=== PATIENT | female | born 1980 | race Caucasian/White ===

== ENCOUNTER 2018-06-06 23:40 | Emergency (ER) | payer OTHER ==
[2018-06-06 23:58] LABS: BILIRUBIN,URINE NEGATIVE (NEGATIVE); GLUCOSE, URINE (UA) NEGATIVE (NEGATIVE); KETONES,URINE (UA) NEGATIVE (NEGATIVE); LEUKOCYTE ESTERASE, URINE NEGATIVE (NEGATIVE); NITRITE,URINE NEGATIVE (NEGATIVE); OCCULT BLOOD,URINE NEGATIVE (NEGATIVE); PROTEIN,URINE NEGATIVE (NEGATIVE); UROBILINOGEN,URINE 0.2 (NORMAL) E.U./dL (NORMAL)
[2018-06-07 00:01] LABS: CLARITY,URINE CLEAR (CLEAR)
[2018-06-07 00:12] LABS: HCG UR QUAL NEGATIVE
[2018-06-07] MEDS ORDERED: ONDANSETRON 4 MG/2 ML VIAL IVP STA (00:34)
[2018-06-07] MEDS ORDERED: SODIUM CHLORIDE 0.9% 1,000 ML IV ONE (00:34)
[2018-06-07] MEDS ORDERED: KETOROLAC 60 MG/2 ML VIAL IVP STA (00:34)
[2018-06-07] MEDS ORDERED: DEXAMETHASONE 10 MG/ML VIAL IVP STA (00:34)
--- NOTE | 2018-06-07 00:36 | ED Physician Documentation ---
PD HPI BACK PAIN - Stated complaint Stated Complaint: LOW BACK PAIN,VOMITING - Chief complaint Chief Complaint: Abd Pain - History obtained from History obtained from: Patient - History of Present Illness Timing - onset: How many days ago (2) Timing - duration: Days (2) Timing - details: Gradual onset, Still present Location: Mid, Lower Quality: Pain, Sharp Associated symptoms: Fever Improves with: Rest, Position, Meds Worsened by: Movement Contributing factors: Other (no known trauma or excessive use) Similar symptoms before: Diagnosis (pyelo) Recently seen: Not recently seen - Additional information Additional information: Previously well 37-year-old female with a prior history of pyelonephritis has developed acute back pain which she feels is very similar to what she has had with her pyelonephritis. She is developed vomiting she is vomited more than 15 times today she vomited twice yesterday. She has been taking some Aleve today as well as some acetaminophen. She feels that she had a fever earlier today measured at 101 and she has had some chills. 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 - Allergies Allergies/Adverse Reactions: Allergies Allergy/AdvReac Type Severity Reaction Status Date / Time No Known Drug Allergies Allergy Verified 06/06/18 23:50 - Social History Does the pt smoke?: Yes Smoking Status: Current every day smoker Does the pt drink ETOH?: Yes Does the pt have substance abuse?: No - Immunizations Immunizations are current?: Yes - POLST Patient has POLST: No PD ED PE NORMAL - Vitals Vital signs reviewed: Yes - General General: Alert and oriented X 3, No acute distress, Well developed/nourished - HEENT HEENT: Atraumatic, PERRL, EOMI - Neck Neck: Supple, no meningeal sign, No bony TTP - Cardiac Cardiac: RRR, No murmur - Respiratory Respiratory: No respiratory distress, Clear bilaterally - Abdomen Abdomen: Soft, Non tender - Back Back: No spinal TTP, Other (There is tendernes to the paraspineous muscles bilaterally and to both CVA's) - Derm Derm: Normal color, Warm and dry, No rash - Extremities Extremities: No deformity, No edema - Neuro Neuro: Alert and oriented X 3, laundry washer 2-12 intact, No motor deficit, No sensory deficit, Normal speech Eye Opening: Spontaneous Motor: Obeys Commands Verbal: Oriented GCS Score: 15 - Psych Psych: Normal mood, Normal affect Results - Vitals Vitals: Vital Signs - 24 hr 06/06/18 23:48 Temperature 36.8 C Heart Rate 99 Respiratory 16 Rate Blood Pressure 118/89 H O2 Saturation 99 Oxygen O2 Source Room air - Labs Labs: Laboratory Tests 06/06/18 06/07/18 23:54 00:06 Urine Color YELLOW Urine Clarity CLEAR Urine pH 6.0 Ur Specific [place] 1.015 1.015 Urine Protein NEGATIVE Urine Glucose (UA) NEGATIVE Urine Ketones NEGATIVE Urine Occult Blood NEGATIVE Urine Nitrite NEGATIVE Urine Bilirubin NEGATIVE Urine Urobilinogen 0.2 (NORMAL) Ur Leukocyte Esterase NEGATIVE Ur Microscopic Review NOT INDICATED Urine Culture Comments NOT INDICATED Urine HCG, Qual NEGATIVE Procedures - Bedside sono Bedside sono by EMP: With use of bedside ultrasound both kidneys are imaged there is no evidence of hydronephrosis they are sonographically tender but they are not as tender as the paraspinous muscles tested at the same time. PD MEDICAL DECISION MAKING - ED course Complexity details: reviewed results, re-evaluated patient, considered differential, d/w patient ED course: 37-year-old female with flank pain and vomiting has a negative urinalysis and normal blood counts and chemistries and appears to have tenderness to the paraspinous muscles greater than tenderness to the kidneys on sonographic probing. I suspect she has muscle skeletal pain and she behaves this way. She is treated in the emergency department with a liter of saline 30 mg of Toradol and 10 mg of dexamethasone. She does get some transient rectal burning associated with this and has improvement in her symptoms. We were unable to elicit the loading incident for back spasm. - Sepsis Event Vital Signs: Vital Signs - 24 hr 06/06/18 23:48 Temperature 36.8 C Heart Rate 99 Respiratory 16 Rate Blood Pressure 118/89 H O2 Saturation 99 Oxygen O2 Source Room air Departure - Departure Disposition: 01 Home, Self Care Clinical Impression: Spasm of back muscles Instructions: ED Spasm Back No Trauma Follow-Up: Fabricio Boston MD [Primary Care Provider] - Discharge Date/Time: 06/07/18 01:55
[2018-06-07 00:46] LABS: BASOPHILS % (AUTO) 0.2 %; EOSINOPHILS # (AUTO) 0.1 10^3/uL (0.0-0.7); EOSINOPHILS % (AUTO) 1.4 %; HGB - HEMOGLOBIN 14.4 g/dL (12.0-16.0); LYMPHOCYTES # (AUTO) 1.6 10^3/uL (1.5-3.5); LYMPHOCYTES % (AUTO) 17.5 %; MEAN CORPUSCULAR HEMOGLOBIN 31.1 pg (27.0-31.0); MEAN CORPUSCULAR HGB CONC 34.3 g/dL (32.0-36.0); MEAN CORPUSCULAR VOLUME 90.8 fL (81.0-99.0); MEAN PLATELET VOLUME 7.5 fL (7.9-10.8); MONOCYTES # (AUTO) 0.7 10^3/uL (0.0-1.0); MONOCYTES % (AUTO) 8.1 %; NEUTROPHILS # (AUTO) 6.5 10^3/uL (1.5-6.6); NEUTROPHILS % (AUTO) 72.8 %; PLT - PLATELET COUNT 233 10^3/uL (130-450); RED BLOOD COUNT 4.61 10^6/uL (4.20-5.40); RED CELL DISTRIBUTION WIDTH 12.8 % (12.0-15.0); WHITE BLOOD COUNT 8.9 x10^3/uL (4.8-10.8)
[2018-06-07 00:56] LABS: ALBUMIN/GLOBULIN RATIO 1.2 (1.0-2.2); BILIRUBIN,TOTAL 0.6 mg/dL (0.2-1.0); CALCIUM 8.8 mg/dL (8.5-10.3); CREATININE 0.8 mg/dL (0.4-1.0); TOTAL PROTEIN 7.4 g/dL (6.7-8.2)
[2018-06-07 01:02] LABS: TROPONIN I < 0.04 ng/mL (<0.49)
[2018-06-07 01:04] LABS: CREATINE KINASE MB 0.7 ng/mL (0.6-6.3)
[2018-06-07] MEDS ORDERED: ONDANSETRON ODT 4 MG Prepack 2 TL PRN (01:29)
[2018-06-07 02:00] VITALS: BP 110/69
== END 2018-06-07 01:55 | disposition home or self-care (01) ==
LOC: ED 23:40
DX: M62.830 Muscle spasm of back (principal); F17.200 Nicotine dependence, unspecified, uncomplicated
CPT/HCPCS: 80053; 81001; 81003; 81025; 82550; 82553; 83690; 84484; 85025; 87086; 96361; 96374; 96375; 99283

== ENCOUNTER 2018-10-12 23:29 | Emergency (ER) | payer OTHER ==
--- NOTE | 2018-10-12 23:37 | ED Physician Documentation ---
PD HPI ABD PAIN - Stated complaint Stated Complaint: R SIDE ABD PAIN/VOMITING - History obtained from History obtained from: Patient - History of Present Illness Timing - onset: How many days ago (3) Timing - duration: Days (3) Timing - details: Gradual onset, Still present (Initial onset of intermittent crampy right lower quadrant abdominal pain which became more steady in the last day. She states she had a temperature yesterday of 101. She did not have any fever or today. She denied any vomiting but has had nausea. She states her bowel movement was normal today. She did not have any dysuria.) Quality: Aching, Dull, Pain Location: RLQ Radiation: No: Right flank Improved by: Laying still. No: Eating, BM Worsened by: Moving, Palpation. No: Eating, Breathing Associated symptoms: Fever (yesterday), Nausea. No: Vomiting, Diarrhea, Constipation, Dysuria, Loss of appetite, Vaginal bleeding, Vaginal dc Similar symptoms before: Has not had sx before Recently seen: Not recently seen Review of Systems Constitutional: reports: Fever. denies: Myalgias Nose: denies: Rhinorrhea / runny nose, Congestion Throat: denies: Sore throat Cardiac: denies: Chest pain / pressure, Palpitations Respiratory: denies: Dyspnea, Cough GI: reports: Abdominal Pain. 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: Tubal ligation - Present Medications Home Medications: Ambulatory Orders Medication Instructions Recorded Confirmed Naproxen 375 mg PO BID #20 tablet 10/13/18 Ondansetron Odt [Zofran] 4 mg TL Q6H PRN #10 tablet 10/13/18 Oxycodone HCl/Acetaminophen 1 each PO Q6H PRN #14 tablet 10/13/18 [Percocet 5-325 mg Tablet] - Allergies Allergies/Adverse Reactions: Allergies Allergy/AdvReac Type Severity Reaction Status Date / Time No Known Drug Allergies Allergy Verified 06/06/18 23:50 - Social History Does the pt smoke?: Yes Smoking Status: Current every day smoker Does the pt drink ETOH?: Yes Does the pt have substance abuse?: No - Immunizations Immunizations are current?: Yes - POLST Patient has POLST: No PD ED PE NORMAL - Vitals Vital signs reviewed: Yes - General General: Alert and oriented X 3, Well developed/nourished, Other (appears uncomfortable and holding lower right abdomen) - HEENT HEENT: Pharynx benign - Neck Neck: Supple, no meningeal sign, No adenopathy - Cardiac Cardiac: RRR, No murmur - Respiratory Respiratory: Clear bilaterally - Abdomen Abdomen: Normal bowel sounds, Soft, Non distended, No organomegaly, Other (Tender in the right lower quadrant at McBurney's point with local guarding and percussion tenderness. There is no rebound tenderness. There is mild referred tenderness from the umbilical area and the rest of the abdomen is nontender.) - Female Female : Deferred - Rectal Rectal: Deferred - Back Back: No CVA TTP - Derm Derm: Normal color, Warm and dry, No rash - Extremities Extremities: No deformity, No tenderness to palpate, Normal ROM s pain, No edema, No calf tenderness / cord - Neuro Neuro: Alert and oriented X 3, No motor deficit, Normal speech Results - Vitals Vitals: Vital Signs - 24 hr 10/12/18 10/13/18 10/13/18 23:33 00:21 02:02 Temperature 36.3 C L Heart Rate 130 H 105 H 97 Respiratory 18 16 Rate Blood Pressure 123/62 122/74 O2 Saturation 98 98 98 Oxygen O2 Source Room air - Labs Labs: Laboratory Tests 10/12/18 10/12/18 10/12/18 23:39 23:55 23:55 WBC 7.5 RBC 4.88 Hgb 15.2 Hct 44.3 MCV 90.7 MCH 31.1 H MCHC 34.3 RDW 12.4 Plt Count 245 MPV 8.1 Neut # (Auto) 4.8 Lymph # (Auto) 1.9 [place] # (Auto) 0.5 Eos # (Auto) 0.3 Baso # (Auto) 0.0 Absolute Nucleated RBC 0.00 Nucleated RBC % 0.0 Sodium 138 Potassium 3.5 Chloride 99 L Carbon Dioxide 27 Anion Gap 12.0 BUN 17 Creatinine 0.7 Estimated GFR (MDRD) 94 Glucose 108 H Calcium 9.3 Total Bilirubin 0.5 AST 17 ALT 18 Alkaline Phosphatase 79 Total Protein 7.5 Albumin 4.1 Globulin 3.4 Albumin/Globulin Ratio 1.2 Lipase 32 Urine Color YELLOW Urine Clarity CLEAR Urine pH 6.0 Ur Specific [place] 1.020 Urine Protein NEGATIVE Urine Glucose (UA) NEGATIVE Urine Ketones NEGATIVE Urine Occult Blood NEGATIVE Urine Nitrite NEGATIVE Urine Bilirubin NEGATIVE Urine Urobilinogen 0.2 (NORMAL) Ur Leukocyte Esterase NEGATIVE Ur Microscopic Review NOT INDICATED Urine Culture Comments NOT INDICATED Urine HCG, Qual NEGATIVE - Rads (name of study) abd/pelvic CT Radiology: Prelim report reviewed (The appendix appears normal. There is no free fluid. There is localized inflammation and swelling near the right lower quadrant abdominal wall diagnosed as epiploic appendageitis.), EMP read contemporaneously, See rad report PD MEDICAL DECISION MAKING - ED course Complexity details: reviewed results (Surprisingly the appendix appears normal and there was a diagnosis of epiploic appendagitis. I had initially reviewed the CT myself and thought it was appendicitis and started antibiotics. The radiology reading then came across. She is given pain medicine and anti- inflammatories.), considered differential (Seems likely consistent with appendicitis or possible UTI. Consider ovarian abscess. Will check urine test to make sure no issues for ectopic.), d/w patient Departure - Departure Disposition: 01 Home, Self Care Clinical Impression: Epiploic appendagitis Abdominal pain Qualifiers: Abdominal location: right lower quadrant Qualified Code(s): R10.31 - Right lower quadrant pain Condition: Stable Record reviewed to determine appropriate education?: Yes Follow-Up: Fabricio Boston MD [Primary Care Provider] - Prescriptions: Naproxen 375 mg PO BID #20 tablet Ondansetron Odt [Zofran] 4 mg TL Q6H PRN #10 tablet PRN Reason: Nausea / Vomiting Oxycodone HCl/Acetaminophen [Percocet 5-325 mg Tablet] 1 each PO Q6H PRN #14 tablet PRN Reason: pain Comments: Stay well-hydrated. Anti-inflammatories such as naproxen or ibuprofen twice daily for the next week or so. Ondansetron if needed for nausea. Add Tylenol or oxycodone as needed for pains. The pain will likely continue for a few more days and then slowly improving and may take a week or so to fully resolved. Recheck with your primary care however if not improved well within the 2-3 days. Return if worsening pain, persistent fevers, persistent vomiting, other concerns. Forms: Activity restrictions Discharge Date/Time: 10/13/18 02:03
[2018-10-12] MEDS ORDERED: ONDANSETRON 4 MG/2 ML VIAL IVP STA (23:52)
[2018-10-12] MEDS ORDERED: ACETAMINOPHEN 1,000 MG/100 ML 100 ML IV STA (23:52)
[2018-10-12] MEDS ORDERED: SODIUM CHLORIDE 0.9% 1,000 ML IV ONE (23:52)
[2018-10-12 23:55] LABS: BILIRUBIN,URINE NEGATIVE (NEGATIVE); GLUCOSE, URINE (UA) NEGATIVE (NEGATIVE); KETONES,URINE (UA) NEGATIVE (NEGATIVE); LEUKOCYTE ESTERASE, URINE NEGATIVE (NEGATIVE); NITRITE,URINE NEGATIVE (NEGATIVE); OCCULT BLOOD,URINE NEGATIVE (NEGATIVE); PROTEIN,URINE NEGATIVE (NEGATIVE); UROBILINOGEN,URINE 0.2 (NORMAL) E.U./dL (NORMAL)
[2018-10-13 00:07] LABS: CLARITY,URINE CLEAR (CLEAR); HCG UR QUAL NEGATIVE
[2018-10-13 00:07] LABS: BASOPHILS % (AUTO) 0.5 %; EOSINOPHILS # (AUTO) 0.3 10^3/uL (0.0-0.7); EOSINOPHILS % (AUTO) 3.8 %; HGB - HEMOGLOBIN 15.2 g/dL (12.0-16.0); LYMPHOCYTES # (AUTO) 1.9 10^3/uL (1.5-3.5); LYMPHOCYTES % (AUTO) 25.5 %; MEAN CORPUSCULAR HEMOGLOBIN 31.1 pg (27.0-31.0); MEAN CORPUSCULAR HGB CONC 34.3 g/dL (32.0-36.0); MEAN CORPUSCULAR VOLUME 90.7 fL (81.0-99.0); MEAN PLATELET VOLUME 8.1 fL (7.9-10.8); MONOCYTES # (AUTO) 0.5 10^3/uL (0.0-1.0); MONOCYTES % (AUTO) 6.9 %; NEUTROPHILS # (AUTO) 4.8 10^3/uL (1.5-6.6); NEUTROPHILS % (AUTO) 63.3 %; PLT - PLATELET COUNT 245 10^3/uL (130-450); RED BLOOD COUNT 4.88 10^6/uL (4.20-5.40); RED CELL DISTRIBUTION WIDTH 12.4 % (12.0-15.0); WHITE BLOOD COUNT 7.5 x10^3/uL (4.8-10.8)
[2018-10-13 00:16] LABS: ALBUMIN 4.1 g/dL (3.2-5.5); ALBUMIN/GLOBULIN RATIO 1.2 (1.0-2.2); BILIRUBIN,TOTAL 0.5 mg/dL (0.2-1.0); CALCIUM 9.3 mg/dL (8.5-10.3); CREATININE 0.7 mg/dL (0.4-1.0); TOTAL PROTEIN 7.5 g/dL (6.7-8.2)
[2018-10-13] MEDS ORDERED: IOVERSOL 320 100 ML VIAL IVP ONE ×2 (00:18→00:42)
[2018-10-13] MEDS ORDERED: AMPICILLIN/SULBACTAM 1.5 GM in SODIUM CHLORIDE 0.9% MINIBAG 100 ML IV STA (00:41)
--- NOTE | 2018-10-13 01:03 | CT Report ---
Reason: RLQ pain and reported fever Procedure Date: 10/13/2018 Accession Number: [id number] / [id number] Procedure: CT - Abdomen/Pelvis W/ CPT Code: FULL RESULT: EXAM: CT ABDOMEN AND PELVIS EXAM DATE: 10/13/2018 12:45 AM. CLINICAL HISTORY: RLQ pain and reported fever. COMPARISONS: None. TECHNIQUE: Routine helical CT imaging was performed through the abdomen and pelvis. IV contrast: 80ML OPTIRAY 320. Enteric contrast: No. Reconstructions: Coronal and sagittal. In accordance with CT protocol optimization, one or more of the following dose reduction techniques were utilized for this exam: automated exposure control, adjustment of mA and/or KV based on patient size, or use of iterative reconstructive technique. FINDINGS: Lung Bases: Unremarkable. Liver: Normal. No masses. Gallbladder/Bile Ducts: Unremarkable. Spleen: Normal. Pancreas: Normal. Adrenal Glands: Normal. Kidneys: Normal. No masses or hydronephrosis. Peritoneal Cavity/Bowel: Normal. No free fluid, free air or adenopathy. No masses or acute inflammatory process. The appendix is normal. There is focal inflammation of fat adjacent to the mid ascending colon compatible with epiploic appendagitis. This is perhaps seen best on series 3 images 48 through 53 Pelvic Organs: The uterus is in a neutral position. There are follicles associate with both ovaries. Vasculature: No aneurysms or other significant abnormality. Bones: No significant abnormality. Other: None. IMPRESSION: 1. Epiploic appendagitis along the anterior wall of the of the proximal ascending colon. 2. Normal-appearing appendix. RADIA
[2018-10-13] MEDS ORDERED: KETOROLAC 30 MG/ML VIAL IVP STA (01:15)
[2018-10-13] MEDS ORDERED: ONDANSETRON ODT 4 MG Prepack 2 TL PRN (01:17)
[2018-10-13] MEDS ORDERED: oxyCODONE/ACET 5/325 Prepack 4 PO STA (01:17)
[2018-10-13 02:02] VITALS: BP 122/74
== END 2018-10-13 02:03 | disposition home or self-care (01) ==
LOC: ED 23:29
DX: K63.89 Other specified diseases of intestine (principal); R10.31 Right lower quadrant pain; F17.200 Nicotine dependence, unspecified, uncomplicated
CPT/HCPCS: 36415; 74177; 80053; 81003; 81025; 83690; 85025; 96365; 96367; 96375; 96376; 99283; 99284; J0131; Q9967; 81001; 87086

== ENCOUNTER 2022-01-14 02:23 | Emergency (ER) | payer OTHER ==
[2022-01-14] MEDS ORDERED: KETOROLAC 30 MG/ML VIAL IVP STA (02:40)
[2022-01-14] MEDS ORDERED: ONDANSETRON 4 MG/2 ML VIAL IVP STA ×2 (02:40→03:49)
[2022-01-14] MEDS ORDERED: SODIUM CHLORIDE 0.9% 1,000 ML IV STA (02:40)
[2022-01-14 02:55] LABS: BASOPHILS % (AUTO) 0.3 %; EOSINOPHILS # (AUTO) 0.3 10^3/uL (0.0-0.7); EOSINOPHILS % (AUTO) 4.4 %; HCT - HEMATOCRIT 46.1 % (37.0-47.0); HGB - HEMOGLOBIN 15.3 g/dL (12.0-16.0); LYMPHOCYTES # (AUTO) 2.9 10^3/uL (1.5-3.5); LYMPHOCYTES % (AUTO) 43.3 %; MEAN CORPUSCULAR HEMOGLOBIN 30.5 pg (27.0-31.0); MEAN CORPUSCULAR HGB CONC 33.2 g/dL (32.0-36.0); MEAN PLATELET VOLUME 9.7 fL (7.9-10.8); MONOCYTES # (AUTO) 0.4 10^3/uL (0.0-1.0); MONOCYTES % (AUTO) 6.3 %; NEUTROPHILS # (AUTO) 3.1 10^3/uL (1.5-6.6); NEUTROPHILS % (AUTO) 45.6 %; PLT - PLATELET COUNT 248 10^3/uL (130-450); RED BLOOD COUNT 5.01 10^6/uL (4.20-5.40); RED CELL DISTRIBUTION WIDTH 12.3 % (12.0-15.0); WHITE BLOOD COUNT 6.8 x10^3/uL (4.8-10.8)
[2022-01-14 03:07] LABS: ALBUMIN 4.5 g/dL (3.2-5.5); ALBUMIN/GLOBULIN RATIO 1.4 (1.0-2.2); BILIRUBIN,TOTAL 0.3 mg/dL (0.2-1.0); CALCIUM 9.2 mg/dL (8.5-10.3); CREATININE 0.9 mg/dL (0.4-1.0); POTASSIUM 3.2 mmol/L (3.5-5.0); TOTAL PROTEIN 7.7 g/dL (6.7-8.2)
[2022-01-14 03:17] LABS: GLUCOSE, URINE (UA) NEGATIVE (NEGATIVE); KETONES,URINE (UA) TRACE mg/dL (NEGATIVE); LEUKOCYTE ESTERASE, URINE SMALL (NEGATIVE); NITRITE,URINE NEGATIVE (NEGATIVE); OCCULT BLOOD,URINE LARGE (NEGATIVE); PROTEIN,URINE 100 mg/dL (NEGATIVE); UROBILINOGEN,URINE 1 (NORMAL) E.U./dL (NORMAL)
[2022-01-14 03:25] LABS: BILIRUBIN,URINE NEGATIVE (NEGATIVE); CLARITY,URINE CLOUDY (CLEAR); HCG UR QUAL NEGATIVE; ICTOTEST,URINE NEGATIVE
[2022-01-14 03:26] LABS: BACTERIA,URINE Few /HPF (None Seen); RBC,URINE TNTC /HPF (0-5); SQUAMOUS EPITHELIAL CELL,UR MANY Squamous (<= Few)
--- NOTE | 2022-01-14 03:26 | ED Physician Documentation ---
History of Present Illness - Stated complaint Stated Complaint: BACK PX - Chief complaint Chief Complaint: Back Pain - History obtained from History obtained from: Patient - Additonal information Additional information: Patient is a 41-year-old female with no significant past medical history presenting for evaluation of right flank pain that started approximately 30 minutes ago and woke her up from her sleep. It is sharp. She does feel some radiation around to her abdomen. She does have associated nausea and an episode of emesis that was nonbloody. She denies dysuria or hematuria. She denies recent trauma or injury. Nothing makes the pain better or worse. Denies fever, cough, congestion. Denies concern for . Denies history of kidney stones. 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 : None HEENT: None Psych: None Musculoskeletal: None Derm: None - Past Surgical History Past Surgical History: 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 - Present Medications Home Medications: Ambulatory Orders Medication Instructions Recorded Confirmed Ondansetron Odt [Zofran] 4 mg TL Q6H PRN #10 tablet 01/14/22 Oxycodone HCl/Acetaminophen 1 each PO Q6H PRN #14 tablet 01/14/22 [Percocet 5-325 mg Tablet] Tamsulosin [Flomax] 0.4 mg PO DAILY #14 cap 01/14/22 - Allergies Allergies/Adverse Reactions: Allergies Allergy/AdvReac Type Severity Reaction Status Date / Time No Known Drug Allergies Allergy Verified 01/14/22 02:31 - Social History Does the pt smoke?: Yes Smoking Status: Current every day smoker Does the pt drink ETOH?: Yes Does the pt have substance abuse?: No - Immunizations Immunizations are current?: Yes - POLST Patient has POLST: No PD ED PE NORMAL - General General: Alert and oriented X 3, No acute distress, Well developed/nourished - HEENT HEENT: Atraumatic, Moist mucous membranes - Neck Neck: Supple, no meningeal sign - Cardiac Cardiac: RRR, No murmur, Strong equal pulses - Respiratory Respiratory: No respiratory distress, Clear bilaterally - Abdomen Abdomen: Normal bowel sounds, Soft, Non tender - Back Back: No spinal TTP. No: No CVA TTP (Mild right CVA tenderness) - Derm Derm: No rash - Extremities Extremities: No edema - Neuro Neuro: Normal speech - Psych Psych: Normal mood Results - Vitals Vitals: Vital Signs - 24 hr 01/14/22 01/14/22 01/14/22 02:30 02:32 04:03 Temperature 36.2 C L Heart Rate 103 H 89 Respiratory 18 19 17 Rate Blood Pressure 139/99 H 130/85 H O2 Saturation 100 100 01/14/22 01/14/22 01/14/22 04:32 05:36 05:38 Temperature Heart Rate 81 68 Respiratory 16 16 Rate Blood Pressure 110/58 L 97/65 O2 Saturation 99 100 01/14/22 06:19 Temperature 36.4 C L Heart Rate 64 Respiratory 16 Rate Blood Pressure 101/83 H O2 Saturation 100 Oxygen O2 Source Room air - Labs Labs: Laboratory Tests 01/14/22 01/14/22 01/14/22 02:50 02:50 03:02 WBC 6.8 RBC 5.01 Hgb 15.3 Hct 46.1 MCV 92.0 MCH 30.5 MCHC 33.2 RDW 12.3 Plt Count 248 MPV 9.7 Neut # (Auto) 3.1 Lymph # (Auto) 2.9 [place] # (Auto) 0.4 Eos # (Auto) 0.3 Baso # (Auto) 0.0 Absolute Nucleated RBC 0.00 Nucleated RBC % 0.0 Sodium 137 Potassium 3.2 L Chloride 101 Carbon Dioxide 26 Anion Gap 10.0 BUN 11 Creatinine 0.9 Estimated GFR (MDRD) 69 L Glucose 116 H Calcium 9.2 Total Bilirubin 0.3 AST 20 ALT 29 Alkaline Phosphatase 77 Total Protein 7.7 Albumin 4.5 Globulin 3.2 Albumin/Globulin Ratio 1.4 Lipase 37 Urine Color DARK YELLOW Urine Clarity CLOUDY Urine pH 6.0 Ur Specific [place] >=1.030 H Urine Protein 100 H Urine Glucose (UA) NEGATIVE Urine Ketones TRACE Urine Occult Blood LARGE H Urine Nitrite NEGATIVE Urine Bilirubin NEGATIVE Urine Urobilinogen 1 (NORMAL) Ur Leukocyte Esterase SMALL H Urine RBC TNTC H Urine WBC 6-10 H Ur Squamous Epith Cells MANY Squamous H Urine Bacteria Few Ur Microscopic Review INDICATED Urine Culture Comments NOT INDICATED Urine HCG, Qual NEGATIVE PD MEDICAL DECISION MAKING - ED course Complexity details: reviewed results, re-evaluated patient, d/w patient ED course: Patient with right flank pain that started suddenly. Vital signs are reassuring. She is not septic. Labs without significant findings. Patient was found to have a right-sided ureter stone. Her pain was controlled. Discussed management for kidney stones. She is comfortable plan for outpatient management and will follow up with her primary care doctor. She is advised on strict return precautions. Departure - Departure Disposition: 01 Home, Self Care Clinical Impression: Right ureteral stone Condition: Stable Instructions: ED Stone Renal W Colic Prescriptions: Tamsulosin [Flomax] 0.4 mg PO DAILY #14 cap Oxycodone HCl/Acetaminophen [Percocet 5-325 mg Tablet] 1 each PO Q6H PRN #14 tablet PRN Reason: pain Ondansetron Odt [Zofran] 4 mg TL Q6H PRN #10 tablet PRN Reason: Nausea / Vomiting Comments: You were evaluated for pain to your right back. You were found to have a kidney stone. It is 4 mm and just now coming out of the kidney. It needs to pass into the bladder. This can be painful so we will give you pain medication to help with this. I have also prescribed nausea medication and a medicine called Flomax which will help you pass the stone. I have sent these prescriptions to [facility] in [place]. Please follow-up with your primary care doctor in the next week. If you develop fever, Worsening pain, continued vomiting or have other concerns Please return to the emergency department. I am prescribing a short course of narcotic pain medication for you. These are potentially dangerous and addictive medications that should be used carefully. These medications may constipate you. Take an tzlu-cum-leperay stool softener (docusate) twice daily with plenty of water while taking these medications. If you go 24 hours without a bowel movement, take [id number] miralax, per package instructions. Do not drink or drive while taking these medications. If you received narcotic or sedating medications while in the emergency department, do not drive for 24 hours. Store this medication in a safe, secure place and out of reach of children. It is a violation of federal law to give or sell this medication to another person or to use in a manner other than prescribed. The ED will not refill narcotic prescriptions, including prescriptions lost or stolen. To dispose of unwanted medications: 1. [facility] at [address] in [place] has a medication drop box. They accept prescription medications (in pill form) Wednesday through Wednesday 9:00 a.m. to 5:00 p.m. 2. The [facility] [employer] accepts prescription medications (in pill form only) for disposal year round. Call for more information. 3. Contact the [facility] for the next [facility] sponsored prescription drug collection event. , [phone], or [phone]; Note that many narcotic pain relievers also contain Tylenol/acetaminophen. Please ensure that your total dose of acetaminophen from all sources does not exceed 3 g (3000 mg) per day. Discharge Date/Time: 01/14/22 06:25
[2022-01-14] MEDS ORDERED: MORPHINE 2 MG/ML CARPUJECT IVP STA (03:49)
[2022-01-14] MEDS ORDERED: TAMSULOSIN 0.4 MG CAPSULE PO STA (06:08)
[2022-01-14] MEDS ORDERED: ONDANSETRON ODT 4 MG Prepack 2 TL PRN (06:08)
[2022-01-14] MEDS ORDERED: oxyCODONE/ACET 5/325 Prepack 4 PO STA (06:08)
[2022-01-14 06:21] VITALS: BP 101/83
--- NOTE | 2022-01-14 08:11 | CT Report ---
PROCEDURE: Abdomen/Pelvis WO INDICATIONS: R flank pain TECHNIQUE: Noncontrast 5 mm thick sections acquired from the diaphragms to the symphysis. 5 mm coronal and sagi ttal reformats were then performed. For radiation dose reduction, the following was used: automated exposure control, adjustment of mA and/or kV according to patient size. COMPARISON: CT of abdomen and pelvis dated 10/13/2018. FINDINGS: Image quality: Excellent. ABDOMEN: Lung bases: Lung bases are clear. Heart size is normal. Solid organs: Liver and spleen are normal in size. Gallbladder is within normal limits Pancreas is normal in contours. No adrenal nodules. Bilateral kidneys are normal in size. Mild to moderate right-sided hydronephrosis and mild right lisette nephric fat stranding is seen. There is a 4 mm stone seen in proximal right ureter just distal to rig ht UPJ. Punctate calcifications are seen in lower pole of left kidney measures 1 to 2 mm in size sugg estive of nonobstructing stones. No left-sided hydronephrosis or larger ureter. Peritoneum and bowel: There is a small hiatal hernia. Unenhanced bowel loops demonstrate normal wall thickness and caliber. No free fluid or air. Appendix is visualized and is within normal limits. Nodes and vessels: No retroperitoneal or mesenteric adenopathy by size criteria. Aorta and inferior vena cava are normal in caliber. Miscellaneous: No ventral hernias. PELVIS: Genitourinary: Bladder wall thickness is normal. Uterus and bilateral adnexa show no gross abnormal ity. Miscellaneous: No inguinal hernias or adenopathy. Bones: No suspicious bony lesions. No vertebral body compression fractures. IMPRESSION: 1. 4 mm right proximal ureteral stone with mild to moderate right-sided hydronephrosis and proximal h ydroureter. 2. Tiny nonobstructing stones in lower pole of left kidney. No left-sided hydronephrosis or hydrouret er. Normal-appearing urinary bladder. 3. No bowel obstruction or abnormal bowel wall thickening. Normal appendix. Small hiatal hernia. Reviewed by: Riccardo Thopmson MD on 01/14/2022 8:10 AM PDT Approved by: Riccardo Thompson MD on 01/14/2022 8:10 AM PDT Station ID: [id number]
== END 2022-01-14 06:25 | disposition home or self-care (01) ==
LOC: ED 02:23
DX: N13.2 Hydronephrosis with renal and ureteral calculous obstruction (principal); F17.200 Nicotine dependence, unspecified, uncomplicated
CPT/HCPCS: 36415; 74176; 80053; 81001; 81025; 83690; 85025; 96374; 96375; 96376; 99284; A9270; 81003; 87086